=== PATIENT | female | born 1970 | race Caucasian/White ===

== ENCOUNTER 2021-06-24 18:36 | Outpatient (REF) | payer OTHER, SELFPAY | END 2021-06-24 18:37 | disposition home or self-care (01) | LOC: HO.LNP 18:36 | PROVIDERS: Visit Provider Internal Medicine | DX: J06.9 Acute upper respiratory infection, unspecified (principal); Z20.822 Contact with and (suspected) exposure to COVID-19 | CPT/HCPCS: U0003; U0005 ==